=== PATIENT | male | born 1965 | race Hispanic/Latino ===

== ENCOUNTER → 2023-02-05 | Outpatient (CLI) | payer OTHER ==
[2023-02-05 08:32] LABS: INR 0.95 (0.85-1.15); PROTHROMBIN TIME 10.4 SEC (9.6-11.6)
[2023-02-05 08:33] LABS: PARTIAL THROMBOPLASTIN TIME 32.5 SEC (26.3-35.5)
== END | disposition home or self-care (01) ==
LOC: RAH 07:42
PROVIDERS: ATTEND Internal Medicine
DX: E04.1 Nontoxic single thyroid nodule (principal); Z79.01 Long term (current) use of anticoagulants
CPT/HCPCS: 10005; 36415; 76942; 85610; 85730; 88173; 88305; 96365

== ENCOUNTER 2025-10-28 21:14 | Emergency (ER) | payer OTHER ==
[~2025-10-28] VITALS: Ht 182.9 cm; Wt 106.1 kg
[2025-10-28 21:15] VITALS: BP 174/105; PULSE 68; RESP 20; TEMP 97.9
--- NOTE | 2025-10-28 21:16 | NUR ---
UA CUP PROVIDED
--- NOTE | 2025-10-28 21:17 | NUR ---
CALLED AND SPOKE TO DAVID MARTI, REQUESTED EKG
--- NOTE | 2025-10-28 21:28 | EKG ---
[facility] Test Date: 2025-10-28 Test Time: 21:25:42 Pat Name: LUIS NEVAREZ Department: ED Room: Gender: Upper And Bottom Lacer Hand: [id number] : 1965 Requested By: CARLOS SILVA Order Number: [id number] Reading MD: Bret Clayton Measurements Intervals [place] Rate: 64 P: 24 ID: [id number] QRS: -19 QRSD: 92 T: 21 QT: 370 QTc: 381 Interpretive Statements Sinus rhythm No previous ECG available for comparison Electronically Signed On 10-28-2025 21:54:47 BATCH OPERATOR by Bret Clayton Please click the below link to view image of tracing.
[2025-10-28 21:36] LABS: ADD UA MICROSCOPIC NO; APPEARANCE,URINE CLEAR (CLEAR); GLUCOSE, URINE (UA) NEGATIVE (NEGATIVE); LEUKOCYTE ESTERASE ,URINE NEGATIVE Leu/uL (NEGATIVE); NITRATE,URINE NEGATIVE (NEGATIVE); OCCULT BLOOD,URINE NEGATIVE (NEGATIVE)
--- NOTE | 2025-10-28 21:42 | ERN ---
ED Note History of Present Illness Stated Complaint: DIZZINESS, HEADACHE Chief Complaint: Dizzy/Light Headed Time Seen by MD: 21:19 Dictation: This is a 59-year-old male who presented to the emergency room with complaints of dizziness and headache that started on Wednesday10/16/2025. Apparently he has a history of vertigo in the past and he has not had any episodes in the past 6 months. He looked down at something when he moved his head suddenly to the side after which he began experiencing these symptoms. Headache is mostly in the f rontal area and left-sided temporal and parietal areas. He does have migraine medication Topamax with him which he stated that he took twice. Also took Advil around 1:00 p.m. given these symptoms going on he checked his blood pressure and was consistently 150/101 60/103 and he did take his blood pressure medications around 8:30 p.m.. To ER for further evaluation Patient has a hearing loss and wears bilateral hearing aids for a long time and he also has a history of tinnitus. Temperature 97.9 pulse 68 respirations 20 blood pressure 174/105 pulse oximetry 96% on room air His chronic medical problems include hypertension, hypercholesterolemia, vertigo, migraines and history of rosacea Allergies: Coded Allergies: amoxicillin (Unverified Allergy, Unknown, 10/28/25) clarithromycin (Unverified Allergy, Unknown, 10/28/25) clavulanic acid (Unverified Allergy, Unknown, 10/28/25) minocycline (Unverified Allergy, Unknown, 10/28/25) terbinafine (Unverified Allergy, Unknown, 10/28/25) Past Medical History Past Medical History: High Cholesterol, Hypertension, Migraines, Other Additional Past Medical Hx: VERTIGO, ROSACEA Surgical History: Other Surgical History Other: RT SHOULDER Family History: Negative RN Note Reviewed/Agreed w/PFSH: Yes Review of System Dictation Constitutional: Negative for fever,chills, and weight loss Eyes: Negative for injury, pain,redness, and discharge ENT: Negative for injury,pain or swelling Cardiovascular: Negative for chest pain, palpitations, and edema positive for dizziness Respiratory: Negative for shortness of breath, cough, and wheezing, Abdomen/GI: Negative for abdominal pain, nausea, vomiting, diarrhea, and constipation Back: Negative for injury and pain : Negative for injury, bleeding and discharge MS/Extremity: Negative for injury and deformity Skin: Negative for rash, and discoloration Neuro: Negative for , weakness, numbness, tingling, and seizure positive for headache Psych: Negative for suicide ideation, homicidal ideation, and hallucinations Initial Vital Sign VS Vital Signs Date Time Temp Pulse Resp B/P (MAP) Pulse Ox O2 Delivery O2 Flow Rate FiO2 10/28/25 21:15 97.9 68 20 174/105 96 Room Air Physical Exam Dictation General: awake, alert, NAD Head/Face: Normocephalic, atraumatic Eyes: PERRL, EOMI, vision at baseline ENT: oral cavity clear, TMs clear, no signs of infection Neck: Trachea midline, supple, no nuchal rigidity Cardiovascular: RRR, normal S1/S2, No MRGs, no JVD Respiratory: CTAB, no respiratory distress, No rales or wheezes Abdomen: Soft, non-tender, non-distended, normal bowel sounds, no guarding or rebound. Skin: Warm, dry, normal turgor, no rash MS/Extremity: Pulses equal, no cyanosis, neurovascular intact, FROM Neuro: COAx4, GCS 15, strength 5/5, CN 2-12 intact, normal cerebellar exam, normal gait, Psych: Normal behavior, mood, and affect normal Extremities-trace edema without any palpable cords, Homans sign is negative Head impulse test-horizontal nystagmus bilateral No vertical skew. Positive bilateral subtle catch-up saccades Results (Laboratory/Radiology) Laboratory/Radiology Laboratory Tests Test 10/28/25 21:20 10/28/25 21:51 Urine Color COLORLESS (YELLOW) Urine Appearance CLEAR (CLEAR) Urine pH 6.5 (5.0-8.0) Urine Specific Brick 1.007 (1.001-1.031) Urine Protein NEGATIVE mg/dL (NEGATIVE) Urine Glucose (UA) NEGATIVE mg/dL (NEGATIVE) Urine Ketones NEGATIVE mg/dL (NEGATIVE) Urine Occult Blood NEGATIVE (NEGATIVE) Urine Nitrate NEGATIVE (NEGATIVE) Urine Bilirubin NEGATIVE mg/dL (NEGATIVE) Urine Urobilinogen 0.2 mg/dL (0.2-1.0) Urine Leukocyte Esterase NEGATIVE Maura/uL White Blood Count 7.5 K/uL (4.8-10.8) Red Blood Count 5.61 MIL/uL (4.50-6.20) Hemoglobin 16.0 g/dL (14.0-18.0) Hematocrit 47.7 % (42-54) Mean Corpuscular Volume 85.0 fL (79-99) Mean Corpuscular Hemoglobin 28.5 pg (27.0-33.0) Mean Corpuscular Hemoglobin Concent 33.5 g/dL (32.0-36.0) Red Cell Distribution Width 13.2 % (11.0-15.5) Platelet Count 167 K/uL (130-400) Mean Platelet Volume 10.2 fL (7.5-10.5) Immature Granulocyte % (Auto) 0.1 % (0-1) Neutrophils (%) (Auto) 65.6 % (40.0-77.0) Lymphocytes (%) (Auto) 25.2 % (21.0-51.0) Monocytes (%) (Auto) 7.7 % (3.0-13.0) Eosinophils (%) (Auto) 1.1 % (0.0-8.0) Basophils (%) (Auto) 0.3 % (0.0-5.0) Neutrophils # (Auto) 4.9 K/uL (1.8-7.7) Lymphocytes # (Auto) 1.9 K/uL (1.0-4.8) Monocytes # (Auto) 0.6 K/uL (0.1-1.0) Eosinophils # (Auto) 0.08 K/uL (0.00-0.70) Basophils # (Auto) 0.02 K/uL (0.00-0.20) Absolute Immature Granulocyte (auto 0.01 K/uL (0-1) Nucleated Red Blood Cells 0.0 % (0.0-0.19) Sodium Level 140 mmol/L (136-145) Potassium Level 4.0 mmol/L (3.5-5.1) Chloride Level 108 mmol/L (101-111) Carbon Dioxide Level 28 mmol/L (21-32) Blood Urea Nitrogen 16 mg/dL (7-18) Creatinine 1.0 mg/dL (0.5-1.3) Glomerular Filtration Rate Calc 87 mL/min (>90) Random Glucose 102 mg/dL (70-105) Total Calcium 8.7 mg/dL (8.5-10.1) Troponin I High Sensitivity 8 ng/L (4-75) Labs Reviewed?: Yes ED Course ED Course Orders Procedure Category Date Status Time 12 Lead Ekg Tracing- EKG 10/28/25 Resulted Technical 21:16 Urinalysis Profile LAB 10/28/25 Complete 21:16 Cbc With Differential LAB 10/28/25 Complete 21:16 Basic Metabolic Panel LAB 10/28/25 Complete 21:16 Troponin I High LAB 10/28/25 Complete Sensitivity 21:16 Methylprednisolone PHA 10/28/25 Complete Succ 125mg (Solu-Medr 23:00 Meclizine Hcl 25 Mg PHA 10/28/25 Complete (Antivert 25 Mg) 23:00 Current Medications Medications (Trade) Dose Ordered Sig/Giuseppe Route PRN Reason Start Time Stop Time Status Last Admin Dose Admin Meclizine HCl (ANTIvert 25 mg) 25 mg ONCE ONCE PO 10/28/25 23:00 10/28/25 23:01 DC 10/28/25 22:45 Methylprednisolone Sodium Succinate (Solu-medROL 125MG) 80 mg ONCE ONCE IM 10/28/25 23:00 10/28/25 23:01 DC 10/28/25 22:46 Vital Signs Date Time Temp Pulse Resp B/P (MAP) Pulse Ox O2 Delivery O2 Flow Rate FiO2 10/28/25 21:15 97.9 68 20 174/105 96 Room Air Medical Decision Making MDM Differential diagnosis- Benign positional vertigo, vestibular neuritis labyrinthitis, Meniere's disease, vertebrobasilar insufficiency, aortic stenosis, arrhythmia, volume depletion This is a 59-year-old male who presented to the emergency room with complaints of dizziness and headache that started on Wednesday10/16/2025. Apparently he has a history of vertigo in the past and he has not had any episodes in the past 6 months. He looked down at something when he moved his head suddenly to the side after which he began experiencing these symptoms. Headache is mostly in the frontal area and left-sided temporal and parietal areas. He does have migraine medication Topamax with him which he stated that he took twice. Also took Advil around 1:00 p.m. given these symptoms going on he checked his blood pressure and was consistently 150/101 60/103 and he did take his blood pressure medications around 8:30 p.m.. To ER for further evaluation Patient has a hearing loss and wears bilateral hearing aids for a long time and he also has a history of tinnitus. Temperature 97.9 pulse 68 respirations 20 blood pressure 174/105 pulse oximetry 96% on room air His chronic medical problems include hypertension, hypercholesterolemia, vertigo, migraines and history of rosacea 11:40 p.m. labs reviewed CBC BNP 7 with a normal limits and his urinalysis is negative. Patient responded to a trial of steroid with the meclizine dramatically. I have discharge him with the same prescription for the next few days. I explained to him if symptoms last more than 5 days he may need vestibular therapy and Carmen maneuvers. He and his verbalized full understanding Rationale: Tests considered and ordered secondary to shared decision making include: Labs Previous outside records reviewed: Old ER visits. Risk of complication and/or morbidity or mortality of patient management: None Medications-Per medication reconciliation Need for hospitalization: Patient does not meet criteria for hospitalization. Need for emergency major/minor surgery: No There are no social concerns with this patient. Prescription drug management Prescriptions will include symptomatic care Patient's prior external medical records from other ER visits were reviewed by me as indicated. Prior testing and results from previous visits were reviewed. Prior tests were taken into account with medical decision making and resource utilization, independent historian/historians were used to obtain complete medical history. I independently interpreted the test that were performed, results were reviewed by me and considered findings on radiology if ordered. Medical management and examination interpretation discussions were had by me with other qualified healthcare professionals as indicated for the patient's care. DX & DISP Disposition: Discharge Departure Impression: Primary Impression: Benign paroxysmal positional vertigo due to bilateral vestibular disorder Additional Impression: Nystagmus due to benign paroxysmal positional vertigo Condition: Stable Scripts Meclizine HCl (Meclizine HCl) 25 Mg Tablet 25 MG PO TID for vertigo, #30 TAB 0 Refills Prov: CARLOS SILVA MD 10/28/25 Prednisone (Prednisone) 20 Mg Tablet 1 TAB PO AD for 6 Days, #14 TAB 0 Refills TAKE 1 TAB BY MOUTH THREE TIMES PER DAY X3 DAYS, THEN TAKE 1 TAB BY MOUTH TWICE A DAY X2 DAYS, THEN TAKE 1 TAB BY MOUTH ONCE A DAY X1 DAY. Prov: CARLOS SILVA MD 10/28/25 Additional Instructions: Patient and the caregiver have been informed of all the diagnostic tests and the imaging conducted during the today's visit to the emergency room and has verbalized understanding of the results I have personally reviewed and interpreted all diagnostic exams performed here in the ER today as well as the vital signs documented by the nursing staff. The patient is now being discharged to home and should follow up with the primary care physician or the specialist as directed by the ER staff. 1 schedule a follow-up appointment; call your primary care physician's office on the next business day to set up a follow-up appointment. 2. Monitor symptoms; if your symptoms worsen return to the emergency room immediately. 3. Return to school/work; you may return to work or school in 2 days or as directed by your primary care physician. 4. Manage pain and fever; take [id number] Tylenol or Advil for pain or fever if there are no contraindications follow the recommended dosage instructions. 5. Stay well hydrated; drink plenty of oral fluids to stay hydrated. 6. Take prescribed medications; take any medications prescribed in the emergency room as directed bring them with you to your primary care physician visit for possible adjustments. 7. Complete medication course; finish the entire course of medication as prescribed even if you start feeling better. Do not have any leftover medication unless instructed otherwise. 8. Follow up on culture results; if a urine culture and wound culture was ordered in the emergency room please follow-up with your primary care physician within 2-3 days to review the culture and sensitivity report for appropriate antibiotic therapy adjustments. 9. Resume home medications; you may resume taking your home medications unless instructed otherwise. 10. Also discussed adverse effects of medications especially steroids which can increase blood pressure as well as sugars. Discussed benefits risks alternatives and outcomes. She verbalized full understanding Referrals: SELF,REFERRAL (PCP) CARLOS SILVA MD Oct 28, 2025 21:42
[2025-10-28 22:05] LABS: IMMATURE GRANULOCYTE ABSOLUTE 0.01 K/uL (0-1); NUCLEATED RED BLOOD CELLS 0.0 % (0.0-0.19); PLATELET COUNT (AUTO) 167 K/uL (130-400); RED BLOOD CELL COUNT(AUTO) 5.61 MIL/uL (4.50-6.20); RED CELL DISTRIBUTION WIDTH 13.2 % (11.0-15.5); WHITE BLOOD COUNT (AUTO) 7.5 K/uL (4.8-10.8)
[2025-10-28 22:17] LABS: CREATININE 1.0 mg/dL (0.5-1.3); GLOMERULAR FILTR. RATE CALC 87.0 mL/min (>90); GLUCOSE,RANDOM 102.0 mg/dL (70-105); SODIUM SERUM 140.0 mmol/L (136-145); UREA NITROGEN, BLOOD 16.0 mg/dL (7-18)
[2025-10-28] MEDS ORDERED: PRED20TA3 PO (23:40)
[2025-10-28] MEDS ORDERED: MECL-302 PO (23:40)
== END 2025-10-28 23:49 | disposition home or self-care (01) ==
LOC: EDH 21:14
DX: H81.13 Benign paroxysmal vertigo, bilateral (principal); H55.00 Unspecified nystagmus; E78.00 Pure hypercholesterolemia, unspecified; I10 Essential (primary) hypertension; Z88.0 Allergy status to penicillin; Z88.1 Allergy status to other antibiotic agents
CPT/HCPCS: 99284; 84484; 80048; 85025; 81003; 36415; 96372; 93005; J2919